=== PATIENT | female | born 1985 | race Caucasian/White ===

== ENCOUNTER 2019-02-28 19:01 | Emergency (ER) | payer OTHER ==
[~2019-02-28] VITALS: Ht 170.2 cm; Wt 79.4 kg
[2019-02-28] MEDS ORDERED: HYDR-4384 PO (19:09)
[2019-02-28] MEDS ORDERED: CABE0.5T2 PO (19:09)
--- NOTE | 2019-02-28 20:04 | NUR ---
Patient discharged to home in stable conditon with family taking patient home. Written and verbal after care instructions given. Patient verbalizes understanding of instructions. Walked out of ER with no distress noted
[2019-02-28 20:05] VITALS: BP 110/66
== END 2019-02-28 20:06 | disposition home or self-care (01) ==
LOC: ER 19:03
DX: S60.132A Contusion of left middle finger with damage to nail, initial encounter (principal); Z79.899 Other long term (current) drug therapy; W23.0XXA Caught, crushed, jammed, or pinched between moving objects, initial encounter; Y93.89 Activity, other specified; Y92.89 Other specified places as the place of occurrence of the external cause; Y99.8 Other external cause status
CPT/HCPCS: 73140; A4217; A4663